=== PATIENT | female | born 1990 | race African-American/Black ===

== ENCOUNTER 2019-07-19 08:17 | Emergency (ER) | payer OTHER, SELFPAY ==
--- NOTE | 2019-07-19 08:41 | ER ---
Nurse's Notes [facility] Name: Darcie Ballard Age: 29 yrs Sex: Female : 1990 Arrival Date: 07/19/2019 Time: 08:18 Bed 5 Private MD: Roshan Porras R Diagnosis: Allergic contact dermatitis Presentation: 07/19 08:26 Presenting complaint: Patient states: rash that began > 1 week ago. Pt reports she is ss being seen by PCP and given a "shot" and prednisone, but nothing seems to be helping. Transition of care: patient was not received from another setting of care. Onset of symptoms is unknown. Risk Assessment: Do you want to hurt yourself or someone else? Patient reports no desire to harm self or others. Initial Sepsis Screen: Does the patient meet any 2 criteria? No. Patient's initial sepsis screen is negative. Does the patient have a suspected source of infection? No. Patient's initial sepsis screen is negative. Care prior to arrival: None. 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 tw2 Historical: - Allergies: 08:27 No Known Allergies; ss - Home Meds: 08:27 Prednisone Oral [Active]; ss - PMHx: 08:27 None; ss - PSHx: 08:27 ; ss - Immunization history:: Adult Immunizations up to date. - Social history:: Smoking status: Patient/guardian denies using tobacco. - Ebola Screening: : Patient denies exposure to infectious person Patient denies travel to an Ebola-affected area in the 21 days before illness onset. Screenin:29 Abuse screen: Denies threats or abuse. Nutritional screening: No deficits noted. tw2 Tuberculosis screening: No symptoms or risk factors identified. Fall Risk None identified. Assessment: 08:30 General: Appears in no apparent distress. Behavior is calm, cooperative, appropriate tw2 for age. Pain: Denies pain. Neuro: Level of Consciousness is awake, alert, obeys commands, Oriented to person, place, time, situation. Cardiovascular: Patient's skin is warm and dry. Respiratory: Respiratory effort is even, unlabored, Respiratory pattern is regular, symmetrical. GI: No signs and/or symptoms were reported involving the gastrointestinal system. : No signs and/or symptoms were reported regarding the genitourinary system. Derm: Reports rash, not improved. 08:44 Reassessment: Patient appears in no apparent distress at this time. Patient and/or tw2 family updated on plan of care and expected duration. Pain level reassessed. Patient is alert, oriented x 3, equal unlabored respirations, skin warm/dry/pink. Vital Signs: 08:27 BP 107 / 60; Pulse 65; Resp 15; Temp 98.2(O); Pulse Ox 100% on R/A; Weight 84.82 kg; Height 5 ft. 1 in. (154.94 cm); Pain 0/10; 08:27 Body Mass Index 35.33 (84.82 kg, 154.94 cm) ED Course: 08:18 Patient arrived in ED. am2 08:18 Roshan Porras MD is Private Physician. am2 08:25 [facility] jr8 08:25 Jv Perez MD is Attending Physician. jr8 08:26 Bed in low position. Call light in reach. tw2 08:27 Triage completed. ss 08:27 Arm band placed on right wrist. 08:29 Shital Chávez RN is Primary Nurse. tw2 08:44 No provider procedures requiring assistance completed. Patient did not have IV access tw2 during this emergency room visit. Administered Medications: No medications were administered Outcome: 08:40 Discharge ordered by . jr8 08:44 Discharged to home ambulatory. tw2 08:44 Condition: stable 08:44 Discharge instructions given to patient, Instructed on discharge instructions, follow up and referral plans. medication usage, Demonstrated understanding of instructions, follow-up care, medications, Prescriptions given X 1. 08:45 Patient left the ED. tw2 Signatures: Deidra Mcdaniels RN RN Carlos Contreras PA PA [facility] Shital Chávez RN RN tw2 Beatriz Nash am2
--- NOTE | 2019-07-19 08:41 | EDPHYS ---
Physician Documentation [facility] Name: Darcie Ballard Age: 29 yrs Sex: Female : 1990 Arrival Date: 07/19/2019 Time: 08:18 Bed 5 Private MD: Roshan Porras R ED Physician Jv Perez HPI: 07/19 08:41 This 29 yrs old Black Female presents to ER via Ambulatory with complaints of Rash. jr8 08:41 The rash is located on the body diffusely. The rash can be described as papular, jr8 patchy, raised, urticarial. Onset: The symptoms/episode began/occurred 1 week(s) ago. The patient has been recently seen by a physician: the patient's primary care provider. Pt seen by PCP, has been on steroids, taking benadryl, still having an itchy rash to arms and thorax. 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 tw2 Historical: - Allergies: 08:27 No Known Allergies; ss - Home Meds: 08:27 Prednisone Oral [Active]; ss - PMHx: 08:27 None; ss - PSHx: 08:27 ; ss - Immunization history:: Adult Immunizations up to date. - Social history:: Smoking status: Patient/guardian denies using tobacco. - Ebola Screening: : Patient denies exposure to infectious person Patient denies travel to an Ebola-affected area in the 21 days before illness onset. ROS: 08:43 Constitutional: Negative for fever, chills, and weight loss, Eyes: Negative for injury, jr8 pain, redness, and discharge, ENT: Negative for injury, pain, and discharge, Neck: Negative for injury, pain, and swelling, Cardiovascular: Negative for chest pain, palpitations, and edema, Respiratory: Negative for shortness of breath, cough, wheezing, and pleuritic chest pain, Abdomen/GI: Negative for abdominal pain, nausea, vomiting, diarrhea, and constipation, Back: Negative for injury and pain, MS/Extremity: Negative for injury and deformity. 08:43 Skin: Positive for rash. Exam: 08:43 Constitutional: This is a well developed, well nourished patient who is awake, alert, jr8 and in no acute distress. Head/Face: Normocephalic, atraumatic. Eyes: Pupils equal round and reactive to light, extra-ocular motions intact. Lids and lashes normal. Conjunctiva and sclera are non-icteric and not injected. Cornea within normal limits. Periorbital areas with no swelling, redness, or edema. ENT: Nares patent. No nasal discharge, no septal abnormalities noted. Tympanic membranes are normal and external auditory canals are clear. Oropharynx with no redness, swelling, or masses, exudates, or evidence of obstruction, uvula midline. Mucous membranes moist. Neck: Trachea midline, no thyromegaly or masses palpated, and no cervical lymphadenopathy. Supple, full range of motion without nuchal rigidity, or vertebral point tenderness. No Meningismus. Chest/axilla: Normal chest wall appearance and motion. Nontender with no deformity. No lesions are appreciated. Cardiovascular: Regular rate and rhythm with a normal S1 and S2. No gallops, murmurs, or rubs. Normal PMI, no JVD. No pulse deficits. Respiratory: Lungs have equal breath sounds bilaterally, clear to auscultation and percussion. No rales, rhonchi or wheezes noted. No increased work of breathing, no retractions or nasal flaring. Abdomen/GI: Soft, non-tender, with normal bowel sounds. No distension or tympany. No guarding or rebound. No evidence of tenderness throughout. MS/ Extremity: Pulses equal, no cyanosis. Neurovascular intact. Full, normal range of motion. 08:43 Skin: Appearance: normal except for affected area, rash a mild rash is noted, rash can be described as papular, raised, urticarial, contact dermatitis, on the chest, abdomen, right arm and left arm. Vital Signs: 08:27 BP 107 / 60; Pulse 65; Resp 15; Temp 98.2(O); Pulse Ox 100% on R/A; Weight 84.82 kg; ss Height 5 ft. 1 in. (154.94 cm); Pain 0/10; 08:27 Body Mass Index 35.33 (84.82 kg, 154.94 cm) ss MDM: 08:37 Patient medically screened. [facility] 08:38 Data reviewed: vital signs, nurses notes. Data interpreted: Pulse oximetry: on room air jr8 is 100 %. Interpretation: normal. Counseling: I had a detailed discussion with the patient and/or guardian regarding: the historical points, exam findings, and any diagnostic results supporting the discharge/admit diagnosis. ED course: Pt with itchy rash, has been on steroids, daily benadryl, and claritin. PT is non toxic, rash is blanchable, no other symptoms. Unable to identify offending agent. Pt will need to see dermatology for FU. Administered Medications: No medications were administered Disposition: 17:13 Co-signature as Attending Physician, Jv Perez MD I agree with the assessment and ana luisa plan of care. Disposition: 07/19/19 08:40 Discharged to Home. Impression: Allergic contact dermatitis. - Condition is Stable. - Discharge Instructions: Contact Dermatitis. - Prescriptions for Hydrocortisone 0.5 % Topical Cream - apply 1 application by TOPICAL route every 12 hours As needed; 30 gram. - Medication Reconciliation Form, Thank You Letter, Work release form form. - Follow up: Private Physician; When: As needed; Reason: Recheck today's complaints, Re-evaluation by your physician. - Problem is an ongoing problem. - Symptoms are unchanged. Signatures: Jv Perez MD MD cha Smirch, Shelby, RN RN Carlos Reddy PA PA jr8 Shital Chávez RN RN tw2 Corrections: (The following items were deleted from the chart) 08:45 08:40 07/19/2019 08:40 Discharged to Home. Impression: Allergic contact dermatitis. tw2 Condition is Stable. Forms are Work release form, Medication Reconciliation Form, Thank You Letter, Antibiotic Education, Prescription Opioid Use. Follow up: Private Physician; When: As needed; Reason: Recheck today's complaints, Re-evaluation by your physician. Problem is an ongoing problem. Symptoms are unchanged. jr8
[2019-07-19 09:01] VITALS: BP 107/60; TEMP 98.2; O2SAT 100
== END 2019-07-19 08:45 | disposition home or self-care (01) ==
LOC: ER 08:17
DX: L23.9 Allergic contact dermatitis, unspecified cause (principal)
CPT/HCPCS: 99282

== ENCOUNTER 2019-08-28 23:00 | Emergency (ER) | payer OTHER ==
--- OUTSIDE RECORDS SUMMARY | 2019-08-28 23:03 | XMS REPORT ---
:1990 Author Organization [facility] Address [address] [place] [address] [address] [place] [address] Care Team Providers Name Role Phone Unavailable Unavailable Unavailable Problems This patient has no known problems. Allergies, Adverse Reactions, Alerts This patient has no known allergies or adverse reactions. Medications This patient has no known medications.
[2019-08-28] MEDS ORDERED: PROMETHAZINE 25 MG/ML VIAL ONE (23:48)
[2019-08-28] MEDS ORDERED: NA CHLORIDE 0.9% 1,000 ML ONE (23:48)
[2019-08-28] MEDS ORDERED: FENTANYL CITR 100 MCG/2 ML ONE (23:48)
[2019-08-28 23:58] LABS: Absolute Lymphocytes (CBC) 0.4 K/uL (0.7-4.9); Basophils % 0.2 % (0-1.3); Hematocrit 35.3 % (36.0-45.0); Lymphocytes % 4.8 % (15.3-44.8); MPV 8.4 fL (7.6-11.3); RBC Red Blood Cell Count 3.99 M/uL (3.86-4.86)
[2019-08-29 00:10] LABS: ALT/SGPT 18 U/L (12-78); AST/SGOT 15 U/L (15-37); Albumin 3.9 g/dL (3.4-5.0); Alkaline Phosphatase 65 U/L (45-117); BUN Blood Urea Nitrogen 12 mg/dL (7-18); Bicarbonate 28 mmol/L (21-32); Bilirubin Direct 0.3 mg/dL (0-0.2); Bilirubin Total 1.3 mg/dL (0.2-1.0); Glucose Level 98 mg/dL (74-106); Lipase 55 U/L (73-393); Protein, Total 8.2 g/dL (6.4-8.2); Sodium Level 139 mmol/L (136-145)
[2019-08-29 00:22] LABS: Blood Morphology Comment NOT SEEN (NOT SEEN); Platelet Estimate ADEQ
[2019-08-29 00:27] LABS: Urine Culture Reflex Order NOT NEEDED
[2019-08-29 00:27] LABS: Urine Blood NEGATIVE (NEG); Urine Glucose NEGATIVE (NEG); Urine Protein NEGATIVE (NEG)
[2019-08-29 00:32] LABS: Urine Bacteria <20 /HPF (<20); Urine Mucus 3+ /HPF (NONE SEEN); Urine RBC NONE SEEN /HPF (NONE SEEN)
--- NOTE | 2019-08-29 01:21 | EDPHYS ---
Physician Documentation [facility] Name: Darcie Ballard Age: 29 yrs Sex: Female : 1990 Arrival Date: 08/28/2019 Time: 23:04 Bed 20 Private MD: ED Physician Thomas Arvizu HPI: 08/28 23:22 This 29 yrs old Black Female presents to ER via Ambulatory with complaints of snw Nausea/Vomiting/Diarrhea, Abdominal Pain. 23:22 The patient presents to the emergency department with nausea, vomiting, diarrhea, snw abdominal pain, of the right lower quadrant and left lower quadrant, described as crampy, and does not radiate. Onset: The symptoms/episode began/occurred suddenly, this morning. Possible causes: flare up of bowel problem, Crohn's disease. The symptoms are aggravated by nothing. Associated signs and symptoms: Pertinent positives: abdominal pain, diarrhea, nausea, vomiting, Pertinent negatives: GI bleeding. Severity of symptoms: At their worst the symptoms were moderate. The patient has experienced similar episodes in the past. It is unknown whether or not the patient has recently seen a physician. sees Dr. Alcantar and Dr. Zapata. 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 - Social history:: Smoking status: Patient/guardian denies using tobacco. - Ebola Screening: : Patient denies travel to an Ebola-affected area in the 21 days before illness onset. ROS: 23:21 Constitutional: Negative for fever, chills, and weight loss, Eyes: Negative for injury, snw pain, redness, and discharge, ENT: Negative for injury, pain, and discharge, Neck: Negative for injury, pain, and swelling, Cardiovascular: Negative for chest pain, palpitations, and edema, Respiratory: Negative for shortness of breath, cough, wheezing, and pleuritic chest pain, Back: Negative for injury and pain, : Negative for injury, bleeding, discharge, and swelling, MS/Extremity: Negative for injury and deformity, Skin: Negative for injury, rash, and discoloration, Neuro: Negative for headache, weakness, numbness, tingling, and seizure, Psych: Negative for depression, anxiety, suicide ideation, homicidal ideation, and hallucinations. 23:21 Abdomen/GI: Positive for abdominal pain, nausea, vomiting, and diarrhea, of the right lower quadrant and left lower quadrant. Exam: 23:20 Constitutional: This is a well developed, well nourished patient who is awake, alert, snw and in no acute distress. Head/Face: Normocephalic, atraumatic. Eyes: Pupils equal round and reactive to light, extra-ocular motions intact. Lids and lashes normal. Conjunctiva and sclera are non-icteric and not injected. Cornea within normal limits. Periorbital areas with no swelling, redness, or edema. ENT: Nares patent. No nasal discharge, no septal abnormalities noted. Tympanic membranes are normal and external auditory canals are clear. Oropharynx with no redness, swelling, or masses, exudates, or evidence of obstruction, uvula midline. Mucous membranes moist. Neck: Trachea midline, no thyromegaly or masses palpated, and no cervical lymphadenopathy. Supple, full range of motion without nuchal rigidity, or vertebral point tenderness. No Meningismus. Chest/axilla: Normal chest wall appearance and motion. Nontender with no deformity. No lesions are appreciated. Cardiovascular: Regular rate and rhythm with a normal S1 and S2. No gallops, murmurs, or rubs. Normal PMI, no JVD. No pulse deficits. Respiratory: Lungs have equal breath sounds bilaterally, clear to auscultation and percussion. No rales, rhonchi or wheezes noted. No increased work of breathing, no retractions or nasal flaring. Back: No spinal tenderness. No costovertebral tenderness. Full range of motion. Skin: Warm, dry with normal turgor. Mild pallor with no rashes, no lesions, and no evidence of cellulitis. MS/ Extremity: Pulses equal, no cyanosis. Neurovascular intact. Full, normal range of motion. Neuro: Awake and alert, GCS 15, oriented to person, place, time, and situation. Cranial nerves II-XII grossly intact. Motor strength 5/5 in all extremities. Sensory grossly intact. Cerebellar exam normal. Normal gait. Psych: Awake, alert, with orientation to person, place and time. Behavior, mood, and affect are within normal limits. 23:20 Abdomen/GI: Inspection: abdomen appears normal, Bowel sounds: normal, Palpation: mild abdominal tenderness, in the right lower quadrant and left lower quadrant. Vital Signs: 23:08 BP 104 / 74; Pulse 97; Resp 18; Temp 97.4; Pulse Ox 97% on R/A; Weight 83.46 kg (R); aj1 Height 5 ft. 2 in. (157.48 cm) (R); Pain 8/10; 08/29 00:00 BP 101 / 66; Pulse 80; Resp 20; Pulse Ox 98% on R/A; ra1 01:05 BP 102 / 57; Pulse 86; Resp 18; Pulse Ox 99% on R/A; ra1 01:36 BP 103 / 59; Pulse 86; Resp 18; Pulse Ox 98% on R/A; ra1 08/28 23:08 Body Mass Index 33.65 (83.46 kg, 157.48 cm) aj1 MDM: 08/28 23:10 Patient medically screened. snw 08/29 01:21 Data reviewed: vital signs, nurses notes. Data interpreted: Pulse oximetry: on room air snw is 99 %. Interpretation: normal. Counseling: I had a detailed discussion with the patient and/or guardian regarding: the historical points, exam findings, and any diagnostic results supporting the discharge/admit diagnosis, lab results, the need for outpatient follow up, to return to the emergency department if symptoms worsen or persist or if there are any questions or concerns that arise at home. Response to treatment: the patient's symptoms have markedly improved after treatment. Special discussion: Based on the patient's Hx, exam, and Dx evaluation, there is no indication for emergent surgery or inpatient Tx. It is understood by the patient/guardian that if the Sx's persist or worsen they need to return immediately for re-evaluation. Based on the history and exam findings, there is no indication for further emergent testing or inpatient evaluation. 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 I discussed with the patient/guardian the need to see the primary care provider for further evaluation of the symptoms. 08/28 23:10 Order name: Basic Metabolic Panel snw 08/28 23:10 Order name: CBC with Diff; Complete Time: 00:53 snw 08/28 23:10 Order name: Creatinine for Radiology; Complete Time: 00:09 snw 08/28 23:10 Order name: Hepatic Function; Complete Time: 00:53 snw 08/28 23:10 Order name: Lipase; Complete Time: 00:53 snw 08/28 23:10 Order name: Urine Culture [facility] 08/28 23:10 Order name: Urine Microscopic Only; Complete Time: 00:53 snw 08/28 23:11 Order name: Basic Metabolic Panel; Complete Time: 00:53 EDMS 08/28 23:21 Order name: TS snw 08/28 23:22 Order name: Type and Screen; Complete Time: 00:53 EDMS 08/28 23:51 Order name: Urine Dipstick--Ancillary (enter results); Complete Time: 00:53 ss 08/28 23:51 Order name: Urine --Ancillary (enter results); Complete Time: 00:53 08/29 00:01 Order name: Manual Differential; Complete Time: 00:53 EDMS 08/28 23:10 Order name: IV Saline Lock; Complete Time: 23:45 snw 08/28 23:10 Order name: Labs collected and sent; Complete Time: 23:45 snw 08/28 23:10 Order name: Urine Test (obtain specimen); Complete Time: 23:45 snw 08/28 23:10 Order name: Urine Dipstick-Ancillary (obtain specimen); Complete Time: 23:45 snw Administered Medications: 08/28 23:54 Drug: Phenergan 12.5 mg Route: IVP; Site: right antecubital; [facility] 08/29 00:53 Follow up: Response: No adverse reaction; Nausea is decreased [facility] 08/28 23:54 Drug: fentaNYL (PF) 25 mcg Route: IVP; Site: right antecubital; [facility] 08/29 00:53 Follow up: Response: No adverse reaction; Pain is decreased [facility] 08/28 23:55 Drug: NS 0.9% 1000 ml Route: IV; Rate: 1 bolus; Site: right antecubital; [facility] 08/29 00:52 Follow up: IV Status: Completed infusion; IV Intake: 1000ml Disposition: 06:35 Co-signature as Attending Physician, Thomas Arvizu MD I agree with the assessment and tw4 plan of care. Disposition: 08/29/19 01:20 Discharged to Home. Impression: Lower abdominal pain, unspecified, Nausea and vomiting, Diarrhea, unspecified. - Condition is Stable. - Discharge Instructions: Abdominal Pain, Adult, Food Choices to Help Relieve Diarrhea, Adult, Diarrhea, Adult, Nausea and Vomiting, Adult, Rehydration, Adult, [place] Diet. - Prescriptions for Bentyl 20 mg Oral Tablet - take 1 tablet by ORAL route every 6 hours As needed; 20 tablet. promethazine 25 mg Oral Tablet - take 1 tablet by ORAL route every 6 hours As needed; 20 tablet. - Medication Reconciliation Form, Thank You Letter, Antibiotic Education, Prescription Opioid Use form. - Follow up: Private Physician; When: 1 - 2 days; Reason: Recheck today's complaints, Continuance of care, Re-evaluation by your physician. Follow up: Emergency Department; When: As needed; Reason: Worsening of condition. Signatures: Dispatcher [employer] EDMS Mariah Carlson RN RN aj1 Lorelei Tao, BULL RIDER-C BULL RIDER-Csnw Thomas Arvizu MD MD tw4 Daquan Roth RN RN ra1 Corrections: (The following items were deleted from the chart) 01:41 01:20 08/29/2019 01:20 Discharged to Home. Impression: Lower abdominal pain, ra1 unspecified; Nausea and vomiting; Diarrhea, unspecified. Condition is Stable. Forms are Medication Reconciliation Form, Thank You Letter, Antibiotic Education, Prescription Opioid Use. Follow up: Private Physician; When: 1 - 2 days; Reason: Recheck today's complaints, Continuance of care, Re-evaluation by your physician. Follow up: Emergency Department; When: As needed; Reason: Worsening of condition. snw
--- NOTE | 2019-08-29 01:21 | ER ---
Nurse's Notes [facility] Name: Darcie Ballard Age: 29 yrs Sex: Female : 1990 Arrival Date: 08/28/2019 Time: 23:04 Bed 20 Private MD: Diagnosis: Lower abdominal pain, unspecified;Nausea and vomiting;Diarrhea, unspecified Presentation: 08/28 23:06 Presenting complaint: Patient states: "Since about 4, I've had nothing but vomiting and aj1 diarrhea, my stomach is cramping so bad" Denies fever. Patient reports lower abdominal pain. Transition of care: patient was not received from another setting of care. Onset of symptoms was August 28, 2019. Risk Assessment: Do you want to hurt yourself or someone else? Patient reports no desire to harm self or others. Initial Sepsis Screen: Does the patient meet any 2 criteria? No. Patient's initial sepsis screen is negative. Does the patient have a suspected source of infection? Yes: Acute abdominal pain. Care prior to arrival: None. 23:06 Method Of Arrival: Ambulatory aj 23:06 Acuity: JAMAAL 3 aj1 Triage Assessment: 23:08 General: Appears in no apparent distress. comfortable, Behavior is calm, cooperative, aj1 appropriate for age. Pain: Pain currently is 8 out of 10 on a pain scale. Neuro: Level of Consciousness is awake, alert, obeys commands. Cardiovascular: Patient's skin is warm and dry. Respiratory: Airway is patent Respiratory effort is even, unlabored, Respiratory pattern is regular, symmetrical. GI: Reports diarrhea, nausea, vomiting. 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 - Social history:: Smoking status: Patient/guardian denies using tobacco. - Ebola Screening: : Patient denies travel to an Ebola-affected area in the 21 days before illness onset. Screenin:15 Abuse screen: Denies threats or abuse. Denies injuries from another. Nutritional ra1 screening: No deficits noted. Tuberculosis screening: No symptoms or risk factors identified. Fall Risk IV access (20 points). Assessment: 23:15 General: Appears in no apparent distress. comfortable, Behavior is calm, cooperative, ra1 appropriate for age. Pain: Complains of pain in abdomen Quality of pain is described as crampy, Pain began 1 day ago. Is continuous. Neuro: Level of Consciousness is awake, alert, obeys commands, Oriented to person, place, time, situation, Gait is steady. Respiratory: Airway is patent Respiratory effort is even, unlabored, Respiratory pattern is regular, symmetrical. GI: Abdomen is non-distended, Abd is soft X 4 quads Abdomen is tender to palpation in right lower quadrant and left lower quadrant Reports cramping, diarrhea, nausea, vomiting. : No signs and/or symptoms were reported regarding the genitourinary system. EENT: No signs and/or symptoms were reported regarding the EENT system. Derm: Skin is intact, is healthy with good turgor, Skin is pink, warm \\T\\ dry. Musculoskeletal: Circulation, motion, and sensation intact. Capillary refill < 3 seconds. 08/29 00:15 Reassessment: Patient appears in no apparent distress at this time. Patient and/or ra1 family updated on plan of care and expected duration. Pain level reassessed. Patient is alert, oriented x 3, equal unlabored respirations, skin warm/dry/pink. Vital Signs: 08/28 23:08 BP 104 / 74; Pulse 97; Resp 18; Temp 97.4; Pulse Ox 97% on R/A; Weight 83.46 kg (R); aj1 Height 5 ft. 2 in. (157.48 cm) (R); Pain 8/10; 08/29 00:00 BP 101 / 66; Pulse 80; Resp 20; Pulse Ox 98% on R/A; ra1 01:05 BP 102 / 57; Pulse 86; Resp 18; Pulse Ox 99% on R/A; ra1 01:36 BP 103 / 59; Pulse 86; Resp 18; Pulse Ox 98% on R/A; ra1 08/28 23:08 Body Mass Index 33.65 (83.46 kg, 157.48 cm) aj1 ED Course: 08/28 23:04 Patient arrived in ED. jg7 23:07 Triage completed. aj1 23:08 Arm band placed on Patient placed in an exam room. aj1 23:09 Lorelei Tao [facility]-C [facility]. snw 23:09 Thomas Arvizu MD is Attending Physician. snw 23:15 Patient has correct armband on for positive identification. Bed in low position. Call ra1 light in reach. Pulse ox on. NIBP on. Door closed. Lights dimmed. Warm blanket given. 23:15 No provider procedures requiring assistance completed. ra1 23:32 Daquan Roth, JOSÉ LUIS is Primary Nurse. ra1 23:51 Inserted saline lock: 20 gauge in right antecubital area, using aseptic technique. ra1 Blood collected. 23:51 Initial lab(s) drawn, by me, sent to lab. Urine collected: clean catch specimen, clear. ra1 23:55 TS Sent. ra08/29 01:02 Basic Metabolic Panel Sent. ra1 01:37 IV discontinued, intact, bleeding controlled, No redness/swelling at site. Pressure ra1 dressing applied. Administered Medications: 08/28 23:54 Drug: Phenergan 12.5 mg Route: IVP; Site: right antecubital; [facility] 08/29 00:53 Follow up: Response: No adverse reaction; Nausea is decreased [facility] 08/28 23:54 Drug: fentaNYL (PF) 25 mcg Route: IVP; Site: right antecubital; [facility] 08/29 00:53 Follow up: Response: No adverse reaction; Pain is decreased [facility] 08/28 23:55 Drug: NS 0.9% 1000 ml Route: IV; Rate: 1 bolus; Site: right antecubital; [facility] 08/29 00:52 Follow up: IV Status: Completed infusion; IV Intake: 1000ml ra1 Intake: 00:52 IV: 1000ml; Total: 1000ml. ra Outcome: 01:20 Discharge ordered by . snw 01:37 Discharged to home ambulatory, with friend. ra1 01:37 Condition: good 01:37 Discharge instructions given to patient, friend, Instructed on discharge instructions, follow up and referral plans. medication usage, Demonstrated understanding of instructions, follow-up care, medications, Prescriptions given X 2. 01:39 Condition: d/c and f/u instruction given to patient/friend, denies any questions at [facility] this time, gait steady, d/c to lobby with friend 01:41 Patient left the ED. ra1 Signatures: Mariah Carlson RN RN aj1 Lorelei Tao, SOLE TRIMMER-C SOLE TRIMMER-Csnw Daquan Roth RN RN ra1 Lolis Bryson7
[2019-08-29 02:09] VITALS: TEMP 97.4
[2019-08-29 02:14] VITALS: BP 103/59; O2SAT 98
== END 2019-08-29 01:41 | disposition home or self-care (01) ==
LOC: ER 23:00
DX: R11.2 Nausea with vomiting, unspecified (principal); R19.7 Diarrhea, unspecified; R10.30 Lower abdominal pain, unspecified; K50.90 Crohn's disease, unspecified, without complications
CPT/HCPCS: 96361; 87088; 85025; 87086; 80048; 36415; 86900; 86850; 81025; 86901; 80076; 83690; 96375; 96374; 99284; J2550; J3010; J7030; 81003; 81015

== ENCOUNTER 2019-11-07 09:42 | Emergency (ER) | payer SELFPAY ==
--- OUTSIDE RECORDS SUMMARY | 2019-11-07 09:44 | XMS REPORT ---
:1990 [facility] Address [address] [place] [address] [address] [place] [address] Care Team Providers Name Role Phone Unavailable Unavailable Unavailable Problems This patient has no known problems. Allergies, Adverse Reactions, Alerts This patient has no known allergies or adverse reactions. Medications This patient has no known medications.
[2019-11-07] MEDS ORDERED: IBUPROFEN 200 MG TAB PO ONE (10:52)
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
[2019-11-07 11:48] VITALS: BP 101/72; TEMP 98; O2SAT 100
== END 2019-11-07 11:39 | disposition home or self-care (01) ==
LOC: ER 09:42
DX: S16.1XXA Strain of muscle, fascia and tendon at neck level, initial encounter (principal); V43.52XA Car driver injured in collision with other type car in traffic accident, initial encounter; Y93.89 Activity, other specified; Y92.410 Unspecified street and highway as the place of occurrence of the external cause; R51 Headache
CPT/HCPCS: 70450; 72125; 99283

== ENCOUNTER 2022-03-04 11:41 | Emergency (ER) | payer SELFPAY ==
--- OUTSIDE RECORDS SUMMARY | 2022-03-04 11:44 | XMS REPORT | Continuity of Care Document ---
:1990 Author Organization [facility] t Address [address] [place] [address] Care Team Providers Name Role Phone Milton CARRIZALES Primary Care Physician Unavailable Ha Zepeda Attending Clinician Ha FAULKNER Attending Clinician Unavailable Payers Payer Name Policy Type Policy Number Effective Date Expiration Date S ource Problems Condition Condition Condition Status Onset Resolution Last Treating Co mments Source Name Details Category Date Date Treatment Clinician Date Screening Screening Disease Active Uni vers examinatio examinatio 3- it [place] of n [place] STD [place] Med[place] musa transmitte transmitte Br anch d disease) d disease) Class 2 Class 2 Disease Active Univers obesity obesity 3-05 ity of due to due to 00:00: [place] excess excess 00 Medical calories calories Branch with body with body mass index mass index (BMI) of (BMI) of 37.0 to 37.0 to 37.9 in 37.9 in adult, adult, unspecifie unspecifie d whether d whether serious serious comorbidit comorbidit y present y present BMI BMI Disease Active 2017-10 Univers 37.0-37.9, 37.0-37.9, 2-20 it y of adult adult 00:00: [place] 00 Medical Branch Anemia of Anemia of Disease Active Uni vers mother in mother in 8-15 [place]y [place] , [place] antepartum antepartum 00 Ri dical Branch Well woman Well woman Disease Active 2016-0 U nivers exam exam 3-29 ity of 00:00: [place] 00 Medical Branch Allergies, Adverse Reactions, Alerts Allergy Allergy Status Severity Reaction(s) Onset Inactive Treating Comm ents Source Name Type Date Date Clinician NO KNOWN Drug Active Univers ALLERGIE Class [facility] [place] [facility] Social History Social Habit Start Date Stop Date Quantity Comments Source History [facility] [place] Alcohol Frequency Medical Branch History [facility] [place] Alcohol Std Drinks Medica l Branch History [facility] [place] Alcohol Binge Medical Bra [facility] Exposure to 2022-02-21 2022-03-03 Not sure [facility] SARS-CoV-2 (event) 00:00:00 13:13:00 Medica l Branch Alcohol intake 2021-10-04 2021-10-04 0 /d [facility] 00:00:00 00:00:00 Medical Branch Alcohol Comment 2020-04-19 2020-04-19 social [facility] 00:00:00 00:00:00 Medical Branch Tobacco use and 2011-10-31 2011-10-31 Never used [facility] exposure 00:00:00 00:00:00 Medical Branch Sex [birth year] [facility] 00:00:00 00:00:00 Medical Branch Smoking Status Start Date Stop Date Source Never smoker [facility] Branch Medications Ordered Filled Start Stop Current Ordering Indication Dosage Frequency Signature Comments Components Source Medication Medication Date Date Medication? Clinician (SIG) Name Name ondansetron 2020-10 Yes [id number] 4mg Take 1 Univers (ZOFRAN 2-26 tablet by ity of ODT) 4 mg 00:00: mouth [place] disintegrat 00 every 8 Medic al ing tablet (eight) Branch hours as needed for Nausea and Vomiting (N/V). ibuprofen 2020-10 Yes [id number] 600mg Take 1 Univers 600 mg 2-26 tablet by ity of tablet 00:00: mouth [place] 00 every 6 Medical (six) Branch hours as needed for Pain (scale 4-6). benzonatate 2020-10 Yes [id number] 100mg Take 1 Univers 100 mg 2-26 capsule by ity of capsule 00:00: mouth 3 [place] 00 (three) Medical times Branch daily as needed for Cough. Immunizations Ordered Filled Immunization Date Status Comments [facility] e Immunization Name Name TDAP 2018-08-16 Completed University 00:00:00 [facility] TDAP 2013-11-16 Completed University 00:00:00 [facility] Td 2011-04-14 Completed University 00:00:00 [facility] Rubella 2011-02-25 Completed [facility] 00:00:00 [facility] Vital Signs Vital Name Observation Time Observation Value Comments Source Systolic blood 2022-03-03 18:12:00 107 mm[Hg] Univer sity of pressure [facility] Diastolic blood 2022-03-03 18:12:00 78 mm[Hg] Unive rsity of [facility] Heart rate 2022-03-03 18:12:00 66 /min [facility] Body temperature 2022-03-03 18:12:00 36.44 [facility] rate 2022-03-03 18:12:00 18 /min [facility] Body height 2022-03-03 18:12:00 157.5 cm [facility] Body weight 2022-03-03 18:12:00 89.631 kg [facility] BMI 2022-03-03 18:12:00 36.14 kg/m2 [facility] Procedures This patient has no known procedures. 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
[2022-03-04 12:23] LABS: Urine Blood Negative (Negative); Urine Glucose Negative (Negative); Urine Protein Negative (Negative); Urine Specific Gravity 1.025 (1.005-1.030)
[2022-03-04 13:16] LABS: Albumin 3.8 g/dL (3.4-5.0); Bilirubin Total 0.6 mg/dL (0.2-1.0); Potassium 3.5 mmol/L (3.5-5.1); Protein, Total 7.7 g/dL (6.4-8.2)
[2022-03-04 13:20] LABS: Absolute Lymphocytes (CBC) 1.7 K/uL (0.7-4.9); Hematocrit 36.9 % (36.0-45.0); Lymphocytes % 31.2 % (15.3-44.8); MPV 7.9 fL (7.6-11.3)
--- NOTE | 2022-03-04 13:43 | RAD REPORT ---
EXAM DESCRIPTION: US - Transvaginal Study Probe - 03/04/2022 1:06 pm CLINICAL HISTORY: pelvic pain Pelvic pain. COMPARISON: No comparisons FINDINGS: The uterus is normal in size, shape and echotexture. The uterus measures 8.9 x 5.5 x 4.4 c m. The endometrial stripe measures 10 mm, normal. Both ovaries are normal in size, shape and echotexture. The right ovary measures 2.1 x 1.4 x 1.1 cm. The left ovary measures 3.2 x 3.1 x 2.7 cm. 25 mm left ovarian follicles noted. No worrisome ovaria n mass. No adnexal masses. Normal Doppler blood flow was demonstrated to both ovaries. No significant pelvic ascites. IMPRESSION: Unremarkable study.
[2022-03-04 13:47] LABS: Urine Specific Gravity/Preg 1.025 (1.005-1.030)
[2022-03-04] MEDS ORDERED: MORPHINE 4 MG/ML SYR ONE (14:14)
[2022-03-04] MEDS ORDERED: ONDANSETRON 4 MG/2 ML VIAL ONE (14:15)
--- NOTE | 2022-03-04 14:18 | RAD REPORT ---
EXAM DESCRIPTION: CTAbdomen Pelvis W Contrast - 03/04/2022 2:05 pm CLINICAL HISTORY: Abdominal pain. LLQ abdominal pain COMPARISON: Abdomen Pelvis W Contrast dated 09/08/2017 TECHNIQUE: Biphasic CT imaging of the abdomen and pelvis was performed with 100 ml non-ionic IV cont rast. All CT scans are performed using dose optimization technique as appropriate and may include automated exposure control or mA/KV adjustment according to patient size. FINDINGS: The lung bases are clear. The liver, spleen, pancreas, adrenal glands and kidneys are within normal limits. No bowel obstruction, free air, free fluid or abscess. The appendix is normal. No evidence of signi ficant lymphadenopathy. No suspicious bony findings. IUD noted. IMPRESSION: No acute intra-abdominal or pelvic finding.
--- NOTE | 2022-03-04 14:37 | EDPHYS ---
Physician Documentation [facility] Name: Darcie Ballard Age: 31 yrs Sex: Female : 1990 Arrival Date: 03/04/2022 Time: 11:43 Bed 11 Private MD: ED Physician Julien Ariza HPI: 03/04 12:05 This 31 yrs old Black Female presents to ER via Unassigned with complaints of Abdominal jmm Pain. 12:05 The patient presents with abdominal pain. Onset: The symptoms/episode began/occurred jmm gradually, 2 day(s) ago. The symptoms do not radiate. Associated signs and symptoms: Pertinent negatives: nausea, vomiting, and diarrhea, chest pain, fever. The symptoms are described as achy. Modifying factors: The symptoms are alleviated by nothing, the symptoms are aggravated by nothing. The patient has not experienced similar symptoms in the past. 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 - Social history:: Smoking status: . ROS: 12:05 Constitutional: Negative for fever, chills, and weight loss, Cardiovascular: Negative jmm for chest pain, palpitations, and edema, Respiratory: Negative for shortness of breath, cough, wheezing, and pleuritic chest pain. 12:05 Abdomen/GI: Positive for abdominal pain. 12:05 All other systems are negative. Exam: 12:05 Constitutional: This is a well developed, well nourished patient who is awake, alert, jmm and in no acute distress. Head/Face: atraumatic. Eyes: EOMI, no conjunctival erythema appreciated ENT: Moist Mucus Membranes Neck: Trachea midline, Supple Chest/axilla: Normal chest wall appearance and motion. Cardiovascular: Regular rate and rhythm. No edema appreciated Respiratory: Normal respirations, no respiratory distress appreciated 12:05 Back: Normal ROM Skin: General appearance color normal MS/ Extremity: Moves all extremities, no obvious deformities appreciated, no edema noted to the lower extremities Neuro: Awake and alert Psych: Behavior is normal, Mood is normal, Patient is cooperative and pleasant 12:05 Abdomen/GI: Inspection: abdomen appears normal, Bowel sounds: normal, Palpation: soft, mild abdominal tenderness, in the suprapubic area. Vital Signs: 12:03 BP 117 / 79; Pulse 65; Resp 16; Temp 97.7; Pulse Ox 100% on R/A; Weight 89.36 kg; iw Height 5 ft. 2 in. (157.48 cm); Pain 7/10; 12:03 Body Mass Index 36.03 (89.36 kg, 157.48 cm) iw MDM: 12:05 Patient medically screened. [facility] 12:06 Data reviewed: vital signs, nurses notes. [facility] 14:35 Counseling: I had a detailed discussion with the patient and/or guardian regarding: the [facility] historical points, exam findings, and any diagnostic results supporting the discharge/admit diagnosis, lab results, radiology results, the need for outpatient follow up, to return to the emergency department if symptoms worsen or persist or if there are any questions or concerns that arise at home. ED course: Patient is alert and non toxic in appearance in the ED. Imaging studies negative. Patient is advised to follow up with pcp and otherwise given strict return precautions. patient understood and agrees with the plan of care. . 03/04 12:23 Order name: Urine Dipstick-Ancillary; Complete Time: 12:24 [facility] 03/04 12:33 Order name: CBC with Diff; Complete Time: 13:21 [facility] 03/04 12:33 Order name: CMP; Complete Time: 13:17 [facility] 03/04 12:33 Order name: Lipase; Complete Time: 13:17 [facility] 03/04 12:37 Order name: Urine --Ancillary (enter results); Complete Time: 13:54 03/04 12:33 Order name: IV Saline Lock; Complete Time: 12:51 [facility] 03/04 12:33 Order name: Labs collected and sent; Complete Time: 12:51 [facility] 03/04 12:36 Order name: Urine Test (obtain specimen); Complete Time: 12:37 [facility] 03/04 13:07 Order name: Transvaginal Study Probe; Complete Time: 13:45 [facility] 03/04 13:47 Order name: CT Abd/Pelvis - IV Contrast Only; Complete Time: 14:21 [facility] Administered Medications: 14:15 Drug: morphine 4 mg Route: IVP; Infused Over: 4 mins; Site: right antecubital; coleman 14:16 Follow up: Response: No adverse reaction [place] 14:16 Drug: Zofran (Ondansetron) 4 mg Route: IVP; Site: right antecubital; coleman 14:16 Follow up: Response: No adverse reaction coleman Disposition: 16:09 Co-signature as Attending Physician, Julien Ariza MD. rn Disposition Summary: 03/04/22 14:36 Discharge Ordered Location: Home [facility] Condition: Stable jm Diagnosis - Lower abdominal pain, unspecified jmm Followup: [facility] - With: Andreas Zapata MD - When: 2 - 3 days - Reason: Recheck today's complaints, Continuance of care, Re-evaluation by your physician Discharge Instructions: - Discharge Summary Sheet jmm - Abdominal Pain, Adult jmm - Pelvic Pain, Female jmm Forms: - Medication Reconciliation Form [facility] - Thank You Letter [facility] - Antibiotic Education [facility] - Prescription Opioid Use [facility] Prescriptions: - Pepcid 20 mg Oral Tablet - take 1 tablet by ORAL route every 12 hours for 10 days; 20 tablet; Refills: 0, [facility] Product Selection Permitted - Diclofenac Sodium 75 mg Oral Tablet Sustained Release - take 1 tablet by ORAL route 2 times per day; 30 tablet; Refills: 0, Product [facility] Selection Permitted - dicyclomine 20 mg Oral Tablet - take 1 tablet by ORAL route 4 times per day; 30 tablet; Refills: 0, Product [facility] Selection Permitted Signatures: Dispatcher [employer] EDMS Callum Rojas PA PA [facility] Yohana Ardon, JOSÉ LUIS ORDONEZ iw Julien Ariza MD MD rn Au-StagerTabitha RN RN coleman Corrections: (The following items were deleted from the chart) 13:07 12:38 Pelvis Complete+US.RAD.BRZ ordered. EDMS EDMS 14:50 12:06 Home Meds: None; iw coleman
--- NOTE | 2022-03-04 14:37 | ER ---
Nurse's Notes [facility] Name: Darcie Ballard Age: 31 yrs Sex: Female : 1990 Arrival Date: 03/04/2022 Time: 11:43 Bed 11 Private MD: Diagnosis: Lower abdominal pain, unspecified Presentation: 03/04 12:03 Chief complaint: Patient states: lower abd pain for a few days, denies vomiting or iw diarrhea , denies urinary s/s. Coronavirus screen: At this time, the client does not indicate any symptoms associated with coronavirus-19. Ebola Screen: Patient negative for fever greater than or equal to 101.5 degrees Fahrenheit, and additional compatible Ebola Virus Disease symptoms Patient denies exposure to infectious person. Patient denies travel to an Ebola-affected area in the 21 days before illness onset. No symptoms or risks identified at this time. Initial Sepsis Screen: Does the patient meet any 2 criteria? No. Patient's initial sepsis screen is negative. Does the patient have a suspected source of infection? No. Patient's initial sepsis screen is negative. Risk Assessment: Do you want to hurt yourself or someone else? Patient reports no desire to harm self or others. Onset of symptoms was March 02, 2022. 12:03 Method Of Arrival: Ambulatory iw 12:03 Acuity: JAMAAL 3 iw Triage Assessment: 12:33 General: Appears in no apparent distress. Behavior is calm, cooperative. 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 - Social history:: Smoking status: . Screenin:32 Abuse screen: Denies threats or abuse. Denies injuries from another. Nutritional coleman screening: No deficits noted. Tuberculosis screening: No symptoms or risk factors identified. Fall Risk None identified. Assessment: 12:32 Pain: Complains of pain in abdomen. GI: Bowel sounds present X 4 quads. Abd is soft and coleman non tender Reports Pain is 6 out of 10 on a pain scale. Vital Signs: 12:03 BP 117 / 79; Pulse 65; Resp 16; Temp 97.7; Pulse Ox 100% on R/A; Weight 89.36 kg; iw Height 5 ft. 2 in. (157.48 cm); Pain 7/10; 12:03 Body Mass Index 36.03 (89.36 kg, 157.48 cm) iw ED Course: 11:43 Patient arrived in ED. mr 11:44 Callum Rojas PA is PHCP. [facility] 11:44 Julien Ariza MD is Attending Physician. jmm 12:06 Triage completed. iw 12:07 Arm band placed on. iw 12:32 Tabitha Martinez, RN is Primary Nurse. coleman 12:32 Patient has correct armband on for positive identification. Bed in low position. coleman 12:32 No provider procedures requiring assistance completed. coleman 13:07 Transvaginal Study Probe In Process Unspecified. EDMS 14:07 CT Abd/Pelvis - IV Contrast Only In Process Unspecified. EDMS 14:36 Andreas Zapata MD is Referral Physician. [facility] 14:50 IV discontinued, intact, Pressure dressing applied. coleman Administered Medications: 14:15 Drug: morphine 4 mg Route: IVP; Infused Over: 4 mins; Site: right antecubital; coleman 14:16 Follow up: Response: No adverse reaction [place] 14:16 Drug: Zofran (Ondansetron) 4 mg Route: IVP; Site: right antecubital; coleman 14:16 Follow up: Response: No adverse reaction coleman Medication: 12:32 VIS not applicable for this client. coleman Outcome: 14:36 Discharge ordered by . [facility] 14:49 Discharged to home ambulatory. co[place] 14:49 Condition: good 14:49 Discharge instructions given to Prescriptions given X 3. 14:50 Patient left the ED. coleman Signatures: Dispatcher [employer] EDOR Callum Rojas PA PA [facility] MinorLindy Yohana Ardon RN RN Tabitha Martinez RN RN coleman Corrections: (The following items were deleted from the chart) 12:06 12:03 BP 117 / 179; Pulse 65bpm; Resp 16bpm; Pulse Ox 100% RA; Temp 97.7F; 89.36 kg; iw Height 5 ft. 2 in.; BMI: 36.0; Pain 7/10; iw 14:50 12:06 Home Meds: None; iw coleman
[2022-03-04 14:56] VITALS: BP 117/79; TEMP 97.7; O2SAT 100
== END 2022-03-04 14:50 | disposition home or self-care (01) ==
LOC: ER 11:41
DX: R10.30 Lower abdominal pain, unspecified (principal)
CPT/HCPCS: 36415; 74177; 76830; 80053; 81003; 81025; 83690; 85025; 96374; 96375; 99283; J2405; Q9967